=== PATIENT | female | born 1985 | race Caucasian/White ===

== ENCOUNTER 2023-11-20 19:02 | Emergency (ER) | payer BC, SELFPAY ==
[2023-11-20 19:12] VITALS: BP 119/70; PULSE 74; RESP 20; TEMP 37.3; O2SAT 100
--- NOTE | 2023-11-20 19:26 | ECG_ITS ---
Test Date: 2023-11-20 20:01:21 Measurements Intervals Rossiter Rate: 66 P: 47 PA: 132 QRS: 32 QRSD: 86 T: 43 QT: 379 QTc: 399 Interpretive Statements SINUS RHYTHM WITH SINUS ARRHYTHMIA BORDERLINE T WAVE ABNORMALITY- ANTERIOR LEADS BORDERLINE ECG No previous ECG available for comparison Electronically Signed On 11-21-2023 06:30:00 CDT by Charles Craig D.O.
--- NOTE | 2023-11-20 19:26 | ED.URI ---
HPI - URI/Sore Throat General Chief Complaint: Shortness of Breath/Dyspnea Stated Complaint: Sore Throat Time Seen by Provider: 11/20/23 19:20 Source: patient Mode of arrival: ambulatory Limitations: no limitations History of Present Illness HPI Narrative: Dominique is a 38-year-old female patient presenting to the clinic today with complaints of feeling as though she has swollen cervical lymph nodes, dizziness when bending over, and over the past couple weeks she has been having at times worse she feels as though she is having a chest pressure. She denies any chest pain or shortness of breath currently. Vital signs are stable. She reports that she has been under a lot of stress. Does report some nasal congestion as well. Related Data Home Medications Medication Instructions Recorded Confirmed No Home Medications 08/14/23 11/20/23 Allergies Allergy/AdvReac Type Severity Reaction Status Date / Time No Known Allergies Allergy Verified 11/20/23 19:40 [facility] Past Medical History Medical History Hx of migraines Kidney lesion RUQ pain Surgical History Surgical History History of laparoscopic cholecystectomy No history of previous surgery Social History Social History Smoking status: Never smoker Second hand tobacco smoke exposure: No Alcohol intake: current Drinks per week: 1 Substance use: never Do You Feel Safe in your Home?: Yes Lack of Transportation: No Lack of Food: Never True Current Housing: I Have Housing Concerned About Future Housing: No Difficulty Paying Gas/Electric Bills: No Difficulty Paying for Meds: No Currently Unemployed: No Education: Bachelor's Degree Difficulty w/ Childcare or Family Care: No Living arrangements: alone Occupation/Education: occupation Gender identity (if verbalized by the patient): Female Sexual Orientation (if Verbalized by the Patient): Straight or Heterosexual Spiritual care concerns: No Agree to blood products: Yes Comments At the time of my signature, I reviewed and agree with the nursing past medical, surgical, social, and family history. There is no relevant family history pertinent to the patient complaint. Exam Narrative: General: Well-developed, well nourished, in no apparent distress Head: Normocephalic, atraumatic Eyes: Pupils equally round and reactive to light bilaterally, EOM intact, sclera and conjunctive clear, no discharge, lids normal Ears: TMs intact and clear, ear canals clear, no drainage, grossly hearing normal. Nose: Nares patent, clear nasal discharge, no inflammation, no sinus tenderness. Mouth: Oropharynx without lesions or masses, good dentition, MMM. Neck: Supple, trachea midline, no enlargement of anterior or posterior cervical nodes, no thyroid masses or goiter palpable. Cardio: Regular rate and rhythm, s1 and s2 normal, no murmur appreciated. Resp: Clear to auscultation bilaterally anteriorly and posteriorly, no rhonchi, rales, wheezing or rubs Course Course Emergency Course: Portions of this record may have been created with voice recognition software. Level of Care: Express Care Visit Vital Signs Vital signs: Vital Signs Temperature 37.3 C 11/20/23 19:12 Pulse Rate 74 11/20/23 19:12 Respiratory Rate 20 11/20/23 19:12 Blood Pressure 119/70 11/20/23 19:12 Pulse Oximetry 100 11/20/23 19:12 Oxygen Delivery Room Air 11/20/23 19:12 Temperature 37.3 C 11/20/23 19:12 Pulse Rate 74 11/20/23 19:12 Respiratory Rate 20 11/20/23 19:12 Blood Pressure 119/70 11/20/23 19:12 Pulse Oximetry 100 11/20/23 19:12 Oxygen Delivery Room Air 11/20/23 19:12 Vital signs reviewed MDM - URI/Sore Throat MDM Narrative Medical decision making narrative: At the time of visit maxim
[2023-11-20 19:47] LABS: EDSTREPNEGPOS1 Presumptive Negative
== END 2023-11-20 20:27 | disposition home or self-care (01) ==
PROVIDERS: Emergency Provider Nurse Practitioner Family; PCP Emergency Medicine
DX: R42 Dizziness and giddiness (principal); R59.0 Localized enlarged lymph nodes; J06.9 Acute upper respiratory infection, unspecified; Z20.822 Contact with and (suspected) exposure to COVID-19
CPT/HCPCS: 87081; 87426; 87880; 93005; 99213; G0463

== ENCOUNTER 2025-01-28 09:57 | Outpatient (CLI) | payer BC, SELFPAY ==
--- OUTSIDE RECORDS SUMMARY | 2018-12-11 08:00 | XMS_ITS | Continuity of Care Document ---
Author Organization [facility] Address [address] [place] [address] Phone Care Team Providers Care Manager Architecture Name Role Phone Christofer Baez MD Unavailable Unavailab le Allergies, Adverse Reactions, Alerts Substance Reaction Status Criticality No Known Allergies Active No Inform ation Medications Medication Instructions Dosage Effective Dates (start - stop) Status Comments Maxalt 10 mg tablet take 1 tablet by ora l route once, may repeat at 2 hour intervals; do not exceed 30 mg in 24 hours 10 MG - Active sertraline 50 mg tablet TAKE 1 TABLET BY ORAL ROUTE EVERY DAY - Active Procedures Procedure Date Pt inelig neg scrn depres OFFICE [id number] BODY MASS INDEX DOCD SYST BP LT 130 MM HG DIAST BP < 80 MM HG Advance Directives Directive Yes / No Effective Date File Name Life Support Not Answered N/A N/A Intubation Not Answered N/A N/A Antibiotics Not Answered N/A N/A IV Fluid Support Not Answered N/A N/A Tube Feed Not Answered N/A N/A Other Directive N/A N/A WARNING:The information contained in this section is historical and is provided for information only and does not constitute a legal document or any assurance that the information is still accurate. Please verify the information with the decker of the legal document before using it for clinical purposes. Encounters Encounter Description Practice Location Reason(s) For Visit Diagnoses Date Provider Providers Copied on Encounter OFFICE [id number] PANDED [facility], [address], [place], [place], [address] , tel: [phone] [place] stomach issues (chief complaint) Body mass index (BMI) 31.0-31.9, adultDiarrhea, unspecified type Sasha Beaulieu. [address] [place] [address], [place] [address], [place], [place], [address], . tel:[phone] Referring Provider: Christofer heredia, [address] [place] [address], [place], [address] . tel:[phone] [facility], [address], [place], [place], [address] , tel: [phone] [place] No Information Chel Hodges. [address] [place] [address], [place] [address], [place], [place], [address], . tel:[phone] [facility], [address], [place], [place], [address] , tel: [phone] [place] No Information Milligan Tracie. [address] [place] [address], [place] [address], [place], [address], [place]. tel:[phone] [facility], [address], [place], [place], [address] , tel: [phone] [place] migraine and bruise under nail (chief complaint) Body mass index (BMI) 31.0-31.9, adultMigraine without status migrainosus, not intractable, unspecified migraine typeObesity (BMI 30-39.9)Encounte r for screening for diabetes mellitusEncounte r for immunizationEnco unter for general adult medical examination with abnormal findingsGenerali zed anxiety disorderNail dystrophy [facility] Beaulieu. [address] [place] [address], [place], [place], [address], [place]. tel:[phone] Referring Provider: Christofer heredia, [address] [place] [address], [place], [address] . tel:[phone] [facility], [address], [place], [place], [address] , tel: [phone] [place] Migraine without status migrainosus, not intractable, unspecified migraine typeGeneralized anxiety disorderSleep disturbanceBody mass index (BMI) 30.0-30.9, adultNon morbid obesity due to excess caloriesFamily planning counseling 8 Chel Hodges. [facility] [place], [facility] [address], [place], [place], [address], . tel:[phone] Referring Provider: Christofer heredia, [address] [place] [address] [address], [place], [address] . tel:[phone] [facility], [address], [place], [place], [address] , tel: [phone] [place] Generalized anxiety disorderSleep disturbanceFamil y planning counselingMigrai ne without status migrainosus, not intractable, unspecified migraine typeCoughBilater al low back pain, unspecified chronicity, with sciatica presence unspecified 8 Chel Hodges. [facility] [place], [address], [place], [place], [address], [place]. tel:[phone] Referring Provider: Christofer heredia, [address] [place] [address], [place], [address] . tel:[phone] [facility], [address], [place], [place], [address] , tel: [phone] [place] Other elevated white blood cell count 7 Sasha Beaulieu. [facility] [place], [facility] [address], [place], [place], [address], [place]. tel:[phone] Referring Provider: Christofer heredia, [address] [place] [address], [place], [address] . tel:[phone] [facility], [address], [place], [place], [address] , tel: [phone] [place] HematocheziaEnco unter for general adult medical examination with abnormal findingsOverweig ht (BMI 25.0-29.9)Epista xisScreening for diabetes mellitus (DM) 1-201 7 [facility] Christofer. [address] [place] [address], [place] [address], [place], [place], [address], . tel:[phone] Referring Provider: Christofer heredia, [address] [place] [address], [place], [address] . tel:[phone] [facility], [address], [place], [place], [address] , tel: [phone] [place] Right knee pain Aug- 5-201 4 [place] Christofer. [address] [place] [address], [place] [address], [place], [place], [address], [place]. tel:[phone] Referring Provider: Christofer heredia, [address] [place] [address], [place], [address] . tel:[phone] [facility], [address], [place], [place], [address] , tel: [phone] [place] Viral URI 4-201 3 Fo[place] Christofer. [address] [place] [address], [place] [address], [place], [place], [address], [place]. tel:[phone] Referring Provider: Christofer heredia, [address] [place] [address], [place], [address] . tel:[phone] [facility], [address], [place], [place], [address] , tel: [phone] [place] Streptococcal sore throat Sep-0 3-201 3 [facility] Christofer. [address] [place] [address], [place] [address], [place], [place], [address], [place]. tel:[phone] Referring Provider: Christofer heredia, [address] [place] [address], [place], [address] . tel:[phone] [facility], [address], [place], [place], [address] , tel: [phone] [place] Generalized anxiety disorder Aug- 5-201 3 Foersterling Christofer. [address] [place] [address], [address], [place], [place], [address], . tel:[phone] Referring Provider: Christofer heredia, [address] [place] [address], [place], [address] . tel:[phone] [facility], [address], [place], [place], [address] , tel: [phone] [place] SPECIAL SCREENING FOR MALIGNANT NEOPLASMS, OTHER SITES 3 Dung Miguel. [address] [facility] [address], [place], [place], [address], . tel:[phone] [facility], [address], [place], [place], [address] , tel: [phone] [place] Routine general medical examinationGener alized anxiety disorderRoutine general medical examination at a health care facilityPersonal history of other genital system and obstetric disorders 2 Sasha Beaulieu. [address] [place] [address], [facility] [address], [place], [place], [address], . tel:[phone] Referring Provider: Christofer heredia, [address] [place] [address], [place], [address] . tel:[phone] [facility], [address], [place], [place], [address] , tel:[phone] [place] ROUTINE MEDICAL EXAM 1 Sasha Beaulieu. [address] [place] [address], [place], [place], [address], . tel:[phone] Family History Family Member Type Diagnosis Age At Onset Problem (finding) No family hist ory of Coronary artery disease Mother Problem (finding) Diverticulitis Uncles Problem (finding) stroke Father Problem (finding) raised blood lipids Problem (finding) No family hist ory of Cancer, colon Problem (finding) No family hist ory of Cancer, breast Paternal grandmother Problem (finding) Diabetes mellit us Paternal grandfather Problem (finding) malignant neopl asm of lung Immunizations Vaccine Date Status Comments Tdap administered Source: [facility] unization Record Payers Payer name Insurance type Covered green party ID Cheryl casillas(s) [facility] [id number] [facility] [id number] Social History Type Description Quantity Date Captured Comments Alcohol Use Details Caffeine Use Details energy drinks Tobacco Use Status No Information Smoking Status Never smoker Sex Female Sexual Orientation Choose not to disclose Gender Identity Female Vital Signs Date / Time: Height Weight BMI Pulse Rate Blood Pressure Temperature Respiratory Rate Body Surface Area Head Circumference Head Circ. Percentile Wt./Dhruv. Percentile BMI percentile Pulse Ox Inhaled Ox 1:11 PM 63.50 in 80.739 kg (178.00 lbs) 31.0 4 kg/m eter (2) 68 /min 118/76 mm[Hg] 98.80 F 12 /min Chief Complaint And Reason For Visit From encounter dated '12/11/2018 13:00'. stomach issues (chief complaint). Description: Patient reports intermittent loose stools and some diarrhea over the last month. No blood in stool. No fever/chills. No nausea or vomiting. Appetite is good. Minimal abdominal discomfort, just some crampiness prior to bowel movement. No recent antibiotics use. No urinary symptoms. She wonders if she is allergic to gluten however she denies any history of problems with wheat products in the past. No constipation. She has not tried any specific treatments such as Immodium or probiotics. She has not identified anything that makes symptoms better or worse. Reason For Referral Reason For Referral No Information Plan Of Treatment Date Type Action Status Goal Dietary management education , guidance, and counseling completed Goal Dietary management education , guidance, and counseling completed History Of Present Illness Encounter Date Complaint History Of Prese nt Illness stomach issues Patient reports intermittent loose stools and some diarrhea over the last month. No blood in stool. No fever/chills. No nausea or vomiting. Appetite is good. Minimal abdominal discomfort, just some crampiness prior to bowel movement. No recent antibiotics use. No urinary symptoms. She wonders if she is allergic to gluten however she denies any history of problems with wheat products in the past. No constipation. She has not tried any specific treatments such as Immodium or probiotics. She has not identified anything that makes symptoms better or worse. migraine and bruise under nail P ceferino is a 33 y/o female that presents for fasting lab work and general physical.Migraines: Pt reports that she has been taking rizatriptan for treatment of her headaches when needed. She states that this is effective and well tolerated when needed. She never followed up with neurology yet. She reports that Topamax did not help control headaches and she felt it made things worse, so she stopped taking it.Reports that her L thumb fingernail has become distorted over the last year. No injury or trauma. No other skin or nail changes. KULDEEP: Pt reports that her anxiety is well controlled with current sertraline dosing. No SI/HI Obesity: Weight is up 8lbs since last OV. No changes to diet/exercise reported. Functional Status Date Functional Assessmen t No Information Instructions Date Instruction Additional Infor mation mild. No blood in st ool. No fever/chills. No recent antibiotic use. Normal abdominal exam. She can use Immodium if neeeded. Discussed dietary recommendations and bland diet for now. Probiotics may be helpful. If not improving over the coming week, she will follow up with GI. Follow up in one week if not resolved. Related to Diarrhea, unspecified type Dietary management e ducation, guidance, and counseling Related to Body mass index (BMI) 31.0-31.9, adult Safety precautions she reports that tri al of Topomax from [facility] was not effective for her or well tolerated. She states that headache frequency is stable at this time and that she currently takes Maxalt when needed for acute migraines which is effective for her. She is planning on getting in the near future so she will be consulting with neurologist now to discuss treatment strategies before and while she is . Related to Migraine without status migrainosus, not intractable, unspecified migraine type Linear distortion of left thumbnail. Etiology is not clear. Refer to [facility] for further evaluation and treatment. 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 Notify for worsening or persisting symptoms. Will monitor. No SI/HI. Related to Generalized anxiety disorder 33 y/o female. Tdap administered today. Complete WWE with MECHANICAL ASSEMBLER tomorrow as scheduled. Reviewed age appropriate safety, nutrition, and health maintenance. Will check CBC, CMP, FLP, A1c, and TSH today. Related to Encounter for general adult medical examination with abnormal findings Tdap administered to day.Follow up in 3-6 months.Charting performed by Scott Coelho, acting as scribe for Janette Baez. Janette Baez MD: I reviewed the chart and agree with and approve of the documentation. Related to Encounter for immunization Will check A1c today. Related to Encounter for screening for diabetes mellitus BMI of 31.73 today. Continue working on diet, exercise, and weight loss. Check TSH, CMP, A1c and FLP. Related to Obesity (BMI 30-39.9) Medication management Dietary management e ducation, guidance, and counseling Related to Body mass index (BMI) 31.0-31.9, adult Assessments Type Assessment Date assessment Body mass index (BMI) 31.0-31.9, adult assessment Diarrhea, unspecified type Mental Status Date Cognitive Assessment Orientation - [place] ed to time, place, person, situation.Normal Orientation Patient Care Teams Name Effective Dates (start - stop) Status Members No Information
--- NOTE | ~2025-01-28 | MM_ITS ---
EXAMINATION: MM screening julian BI w suzette HISTORY: Screening TECHNIQUE: Craniocaudal and mediolateral oblique 3-D tomosynthesis images were obtained and synthetic 2-D images were generated. CAD analysis was submitted and interpreted. COMPARISON: No prior mammogram is available for comparison at this institution. BREAST PARENCHYMAL COMPOSITION: The breasts are heterogeneously dense, which may obscure small masses. FINDINGS: There is no evidence of suspicious mass, calcification, or architectural distortion to suggest malignancy. Focal asymmetry in the upper-outer quadrant of the right breast. Focal asymmetry in the upper-outer quadrant of the left breast. Focal asymmetry in the right retroareolar region is questionable potential distortion. Focal asymmetry in the left retroareolar region. IMPRESSION: 1. Focal asymmetry in the upper-outer quadrant of the right breast. In addition, there is a focal asymmetry in the right retroareolar region with questionable associated architectural distortion. The study is incomplete. A diagnostic mammogram and a diagnostic ultrasound are recommended. 2. Focal asymmetry in the upper-outer quadrant of the left breast. In addition, there is a focal asymmetry in the left retroareolar region. The study is incomplete. A diagnostic mammogram and a diagnostic ultrasound are recommended. BI-RADS 0: Incomplete-Need additional imaging evaluation. Reviewed, dictated and finalized at location Q. IMPRESSION: 1. Focal asymmetry in the upper-outer quadrant of the right breast. In addition , there is a focal asymmetry in the right retroareolar region with questionable associated architectural distortion. The study is incomplete. A diagnostic julian mogram and a diagnostic ultrasound are recommended. 2. Focal asymmetry in the upper-outer quadrant of the left breast. In addition, there is a focal asymmetry in the left retroareolar region. The study is incom plete. A diagnostic mammogram and a diagnostic ultrasound are recommended. BI-RADS 0: Incomplete-Need additional imaging evaluation.
--- OUTSIDE RECORDS SUMMARY | 2025-01-28 10:52 | XMS_ITS | Patient Health Record ---
Author Organization [facility] Address [address] [place], [place] [address] Care Team Providers Care Wheel Truing Machine Tender Name Role Phone ISH NUNEZ Unavailable [phone] Christofer Baez Unavailable Unavailable Reason For Referral No Information Medications Medication SIG (Take, Route, Frequency, Duration) Notes Start Date End Date Status Medrol Dosepak ORAL Medrol DosepakOr iginal MedicationMedrol Dosepak *Reorder from [employer] for eRx and Interaction Alerts* 07/03/2017 Active Nabumetone 500 MG Oral Tablet nabumetone 500 MG Oral TabletOriginal Medicationnabumetone 500 MG Oral Tablet *Reorder from [employer] for eRx and Interaction Alerts* 08/07/2017 Active Plan Of Treatment No Information Insurance Providers Payer Name Payer Address Payer Phone Subscriber Number Group Number Insured Name Patient Relationship to Insured Coverage Start Date Coverage End Date CIGNA [address] [place] [address] [id number] YUSEF RED Self - patient is the insured
--- OUTSIDE RECORDS SUMMARY | 2025-01-28 10:52 | XMS_ITS | Clinical Summary ---
Author Organization [facility] Address [address] [place] [address] Care Team Providers Care Client Integration Manager Name Role Phone Unavailable Primary Care Provider Unavailabl e Source Comments [facility],non-owned Affiliates and Associated Physician Practices is amultiple site organization consisting of ambulatory clinics and hospital sitesin [place], [place], [place] and [place]. This disclosure is being madepursuant to the Care Everywhere program and may not contain all information available regarding this patient. Last updated 18.[employer] [facility] Allergies No known active allergies Medications * Be aware that medications may not be up to date on this document. Alwaysverify current medications with the patient. rizatriptan (MAXALT) 10 MG tablet Take 10 mg by mouth once as needed 07/18/2018 Active sertraline (Zoloft) 50 MG tablet Take 50 mg by mouth once daily Active vitamin D, ergocalciferol, (Drisdol) 1.25 MG (70973 UT) capsule Take 50,000 Units by mouth every 7 days 03/24/2021 Active escitalopram (Lexapro) 10 MG tablet Take 10 mg by mouth once daily 03/26/2021 Active valACYclovir (Valtrex) 1 GM tablet Take 1,000 mg by mouth as directed 05/31/2021 Active meloxicam (Mobic) 7.5 MG tabletIndicatio ns:Pain in left lower leg,Acute pain of right knee,Gastrocnem ius muscle tear, left, subsequent encounter Take 1 (one) tablet by mouth once daily 30 tablet 2 03/14/2022 Active Active Problems Problem Noted Date Diagnosed Date Renal mass 07/10/2019 Overview (02/23/2022): Added automatically from request for surgery [id number] Added automatically from request for surgery [id number] Migraine without aura and wi thout status migrainosus, not intractable 10/17/2018 Overview (02/23/2022): Last Assessment & Plan: The patient is a 33-year-old right-handed female with migraine headaches without aura. The patient is experiencing about weekly headaches at this point. We discussed today that if she and her her starting family planning, we ought to try to treat this in a way that is safe during . Thus, I recommended she start taking magnesium and riboflavin S supplements. We also discussed using low-dose propranolol to reduce her headache frequency. She is currently using Maxalt for abortive purposes. I explained that that is contraindicated in as it can compromise the vascular supply to the fetus. Until she becomes , she can continue to use that, but after she will need to use a Tylenol combination tablet such as Tylenol 3 or [place]. I will have her start the propranolol, magnesium, MRI above leaving at this point. Assuming this works well for her, I will see her back as needed. 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 Gender Identity Not on file Sexual Orientation Not on file Last Filed Vital Signs Vital Sign Reading Time Taken Comments Blood Pressure 120/82 09/28/2018 3:24 PM CDT Pulse 80 09/01/2018 2:36 PM CDT Temperature 36.9 C (98.4 F) 09/01/2018 2:36 PM CDT Respiratory Rate 16 09/01/2018 2:36 PM CDT Oxygen Saturation 98% 09/01/2018 2:36 PM CDT Inhaled Oxygen Concentration - - Weight 83.5 kg (184 lb) 03/14/2022 9:36 AM FIRE PROTECTION FABRICATOR Height 162.6 cm (5' 4) 09/28/2018 3:24 PM CDT Body Mass Index 31.58 09/28/2018 3:24 PM CDT Plan of Treatment Health Maintenance Due Date Last Done Comments MAMMOGRAM 1983 HIV SCREENING 08/03/1998 HEPATITIS C SCREENING 07/30/2001 DTAP/TDAP/TD VACCINES (1 - Tdap) 08/03/2002 HEPATITIS B VACCINE (1 of 3 - 19+ 3-dose series) 08/03/2002 HPV VACCINE (1 - 3-dose SCDM series) 08/03/2010 LIPID TESTING 09/15/2021 09/15/2016, 08/20/2012 PAP with HPV 09/29/2023 09/28/2018, 04/28/2017, 04/19/2016 DEPRESSION SCREENING 05/08/2024 COVID-19 VACCINE (1 - 2023-2 5 season) 2025 INFLUENZA VACCINE (#1) 2025 ZOSTER VACCINE (1 of 2) 08/03/2033 HIB VACCINE Aged Out No longer eligi ble based on patient's age to complete this topic MENINGOCOCCAL (Group B) VACCINE SHARED DECISION-MAKING Aged Out No longer eligible based on patient's age to complete this topic MENINGOCOCCAL GROUPS A/C/Y/W VACCINE Aged Out No longer eligible b ased on patient's age to complete this topic PNEUMOCOCCAL VACCINE Aged Out No long er eligible based on patient's age to complete this topic Procedures Procedure Name Priority Date/Time Associated Diagnosis Comments HPV DNA PROBE HIGH RISK Routine 09/28/2018 3:29 PM CDT Pap smear, as part of routine gynecological examination from Last 3 Months or Most Recently Relevant to Health Maintenance Results * HPV DNA PROBE HIGH RISK (09/28/2018 3:29 PM CDT) Human papillomavirus High Risk Negative Negative [facility] INSURANCE BILL Comment: This high-risk HPV test detects thirteen high-risk types (16/18/31/33/35/39/45/51/52/56/58/59/68) without differentiation. . 09/28/2018 3:29 PM CDT 09/28/2018 Narrative [facility] INSURANCE BILL - 10/04/2018 5:07 PM CDT No. of containers..01 ThinPrep Vial Resulting Agency Comment Lab Testing performed at: [address] [id number] [place] Ferny Leal MD LAB - MICROBIOLOGY ORDERABLE S Final Result [facility] [address] [place] [address] from Last 3 Months or Most Recently Relevant to Health Maintenance Insurance ANTHEM ANTHEM AETNA AETNA AETNA AETNA AETNA AETNA ANTHEM ANTHEM ANTHEM Advance Directives * Full Code (Latest Code Status on File) Date Activated Date Inactivated Comments 04/21/2010 11:07 AM 04/23/2010 12:13 AM
--- OUTSIDE RECORDS SUMMARY | 2025-01-28 10:52 | XMS_ITS | Clinical Summary ---
Author Organization [facility] Address [address] [facility] [place] [address] Care Team Providers Care Learning And Development Analyst Name Role Phone Christofer Baez MD Primary Care Provider [phone] Allergies No known active allergies Medications docusate sodium (COLACE) 100 mg capsuleIndicati ons:constipatio n Take 1 capsule (100 mg total) by mouth 2 (two) times a day 30 capsule 09/17/2019 Active oxyCODONE-aceta minophen (PERCOCET) 5-325 mg per tabletIndicatio ns:Pain Take 1 tablet by mouth every 6 (six) hours as needed for pain Do not exceed 8 tablets per day. 10 tablet 09/18/2019 Active rizatriptan (MAXALT) 10 mg tablet TAKE ONE TABLET BY MOUTH ONCE NEEDED FOR MIGRAINE. MAY REPEAT IN 2 HOURS IF UNRESOLVED. DO NOT EXCEED 2 TABLETS IN 24 HOURS. 9 tablet 04/29/2020 Active Active Problems Problem Noted Date Diagnosed Date Right renal mass 09/13/2019 Overview (09/13/2019): Added automatically from request for surgery [id number] Renal mass 07/10/2019 Overview (07/10/2019): Added automatically from request for surgery [id number] Migraine without aura and wi thout status migrainosus, not intractable 10/17/2018 Assessment & Plan (10/17/2018 2:16 PM CDT): The patient is a 33-year-old right-handed female [...] combination tablet such as Tylenol 3 or [place]. I will have her start the propranolol, magnesium, MRI above leaving at this point. Assuming this works well for her, I will see her back as needed. Surgical History Surgery Date Site/Laterality Comments CERVICAL BIOPSY W/ LOOP ELEC TRODE EXCISION 05/08/2009 - 05/07/2010 CHOLECYSTECTOMY 04/07/2019 - 05/07/2019 Medical History Medical History Date Comments Migraines Renal mass Family History Medical History Relation Name Comments Anesthesia problems Neg Hx Stroke Neg Hx Relation Name Status Comments Father Alive Mother Alive Social History Tobacco Use Types Packs/Day Years Used Date Smoking Tobacco: Never Smokeless Tobacco: Never Alcohol Use Standard Drinks/Week Comments Yes 3 (1 standard drink = 0.6 oz pur e alcohol) Comments No Sex and Gender Information Value Date Recorded Sex Assigned at Not on file Legal Sex Female 10:59 AM CDT Gender Identity Not on file Sexual Orientation Not on file Obstetrics History Last Filed Vital Signs Vital Sign Reading Time Taken Comments Blood Pressure 127/73 09/18/2019 8:45 AM CDT Pulse 93 09/18/2019 8:45 AM CDT Temperature 36.5 C (97.7 F) 09/18/2019 8:45 AM CDT Respiratory Rate 16 09/18/2019 8:45 AM CDT Oxygen Saturation 99% 09/18/2019 8:45 AM CDT Inhaled Oxygen Concentration - - Weight 79.4 kg (175 lb) 09/17/2019 9:27 AM CDT Height 162.6 cm (5' 4) 09/17/2019 9:27 AM CDT Body Mass Index 30.04 09/17/2019 9:27 AM CDT Plan of Treatment Not on file Insurance [facility] Advance Directives For more information, please contact: [phone] * Full Code (Latest Code Status on File) Date Activated Date Inactivated Comments 09/17/2019 6:57 PM 09/18/2019 4:34 PM Care Teams Learning And Development Analyst Relationship Specialty Start Date End Date Christofer Baez MD [address] [address] PCP - General Family Medicine 09/26/18
== END 2025-01-28 09:58 | disposition home or self-care (01) ==
LOC: ANHFOHIMG 09:58
PROVIDERS: PCP Internal Medicine; Visit Provider Student in an Organized Health Care Education/Training Program
DX: Z12.31 Encounter for screening mammogram for malignant neoplasm of breast (principal); N64.89 Other specified disorders of breast
CPT/HCPCS: 77063; 77067

== ENCOUNTER 2025-02-10 13:13 | Outpatient (CLI) | payer BC, SELFPAY ==
--- OUTSIDE RECORDS SUMMARY | 2018-12-11 08:00 | XMS_ITS | Continuity of Care Document ---
Author Organization [facility] Address [address] [place] [address] Phone Care Team Providers Care Seamless Tube Roller Name Role Phone Christofer Baez MD Unavailable [...] Date Pt inelig neg scrn depres OFFICE [id number] BODY MASS INDEX DOCD SYST BP LT [...] Date Provider Providers Copied on Encounter OFFICE [id number] PANDED [facility], [address], [place], [place], [address] , tel: [phone] [place] stomach issues (chief complaint) Body mass index (BMI) 31.0-31.9, adultDiarrhea, unspecified type Sasha Beaulieu. [address] [place] [address], [place] [address], [place], [place], [address], . tel:[phone] Referring Provider: Christofer heredia, [address] [place] [address], [place], [address] . tel:[phone] [facility], [address], [place], [place], [address] , tel: [phone] [place] No Information Chel Hodges. [address] [place] [address], [place] [address], [place], [place], [address], . tel:[phone] [facility], [address], [place], [place], [address] , tel: [phone] [place] No Information Milligan Tracie. [address] [place] [address], [place] [address], [place], [address], [place]. [phone] [facility], [address], [place], [place], [address] , tel: [phone] [place] migraine and bruise under nail (chief complaint) Body mass index (BMI) 31.0-31.9, adultMigraine without status migrainosus, not intractable, unspecified migraine typeObesity (BMI 30-39.9)Encounte r for screening for diabetes mellitusEncounte r for immunizationEnco unter for general adult medical examination with abnormal findingsGenerali zed anxiety disorderNail dystrophy [facility]al[facility] Beaulieu. [address] [place] [address], [place], [place], [address], [place]. tel:[phone] Referring Provider: Christofer heredia, [address] [place] [address], [place], [address] . tel:[phone] [facility], [address], [place], [place], [address] , tel: [phone] [place] Migraine without status migrainosus, not intractable, unspecified migraine typeGeneralized anxiety disorderSleep disturbanceBody mass index (BMI) 30.0-30.9, adultNon morbid obesity due to excess caloriesFamily planning counseling 8 Chel Hodges. [facility] [place], [facility] [address], [place], [place], [address], . tel:[phone] Referring Provider: Christofer heredia, [address] [place] [address] [address], [place], [address] . tel:[phone] [facility], [address], [place], [place], [address] , tel: [phone] [place] Generalized anxiety disorderSleep disturbanceFamil y planning counselingMigrai ne without status migrainosus, not intractable, unspecified migraine typeCoughBilater al low back pain, unspecified chronicity, with sciatica presence unspecified 8 Chel Hodges. [facility] [place], [address], [place], [place], [address], [place]. tel:[phone] Referring Provider: Christofer heredia, [address] [place] [address], [place], [address] . tel:[phone] [facility], [address], [place], [place], [address] , tel: [phone] [place] Other elevated white blood cell count 7 Sasha Beaulieu. [facility] [place], [facility] [address], [place], [place], [address], [place]. tel:[phone] Referring Provider: Christofer heredia, [address] [place] [address], [place], [address] . tel:[phone] [facility], [address], [place], [place], [address] , tel: [phone] [place] HematocheziaEnco unter for general adult medical examination with abnormal findingsOverweig ht (BMI 25.0-29.9)Epista xisScreening for diabetes mellitus (DM) 1-201 7 Fo[place]ster[place] Christofer. [address] [place] [address], [place] [address], [place], [place], [address], . tel:[phone] Referring Provider: Christofer heredia, [address] [place] [address], [place], [address] . tel:[phone] [facility], [address], [place], [place], [address] , tel: [phone] [place] Right knee pain Aug- 5-201 4 Foerster[place] Christofer. [address] [place] [address], [place] [address], [place], [place], [address], [place]. tel:[phone] Referring Provider: Christofer heredia, [address] [place] [address], [place], [address] . tel:[phone] [facility], [address], [place], [place], [address] , tel: [phone] [place] Viral URI 4-201 3 [facility] Chrsitofer. [address] [place] [address], [place] [address], [place], [address], [place]. tel:[phone] Referring Provider: Christofer heredia, [address] [place] [address], [place], [address] . tel:[phone] [facility], [address], [place], [place], [address] , tel: [phone] [place] Streptococcal sore throat Sep-0 3-201 3 Foersterling Christofer. [address] [place] [address], [place] [address], [place], [place], [address], [place]. tel:[phone] Referring Provider: Christofer heredia, [address] [place] [address], [place], [address] . tel:[phone] [facility], [address], [place], [place], [address] , tel: [phone] [place] Generalized anxiety disorder Aug- 5-201 3 Foersterling Christofer. [address] [place] [address], [address], [place], [place], [address], . tel:[phone] Referring Provider: Christofer heredia, [address] [place] [address], [place], [address] . tel:[phone] [facility], [address], [place], [place], [address] , tel: [phone] [place] SPECIAL SCREENING FOR MALIGNANT NEOPLASMS, OTHER SITES 3 Dung Miguel. [address], [facility] [address], [place], [place], [address], . tel:[phone] [facility], [address], [place], [place], [address] , tel: [phone] [place] Routine general medical examinationGener alized anxiety disorderRoutine general medical examination at a health care facilityPersonal history of other genital system and obstetric disorders 2 Sasha Bealuieu. [address] [place] [address], [facility] [address], [place], [place], [address], . tel:[phone] Referring Provider: Christofer heredia, [address] [place] [address], [place], [address] . tel:[phone] [facility], [address], [place], [place], [address] , tel:[phone] [place] ROUTINE MEDICAL EXAM 1 Sasha Beaulieu. [address] [place] [address], [place], [place], [address], . tel:[phone] Family History Family Member Type Diagnosis Age [...] Date Status Comments Tdap administered Source: [facility] unization Record Payers Payer name Insurance type Covered libertarian ID Cheryl casillas(s) [facility] [id number] [facility] [id number] Social History Type Description Quantity Date Captured [...] female. Tdap administered today. Complete WWE with CUSTOMER PROGRAM MANAGER tomorrow as scheduled. Reviewed age appropriate safety, [...] Mental Status Date Cognitive Assessment Orientation - [place] ed to time, place, person, situation.Normal Orientation Patient Care Teams Name Effective Dates (start - stop) Status Members No Information
--- NOTE | ~2025-02-10 | MMUS_ITS ---
EXAMINATION: MM diagnostic julian BI w suzette, US breast LT limited INDICATION: 39-year old female; BI-RADS 0, bilateral breast findings. COMPARISON: 01/28/2025 TECHNIQUE: Digital breast tomosynthesis True lateral and spot compression CC and MLO views of BILATERAL breasts were obtained with computer-aided detection to assist in interpretation of the study. MAMMOGRAM FINDINGS: The breasts are heterogeneously dense, which may obscure small masses. The focal asymmetry of concern in the upper outer right breast effaces on spot compression views compatible with superimposition of fibroglandular tissue. The focal asymmetry of concern in the retroareolar right breast effaces on spot compression views compatible with superimposition of fibroglandular tissue. The focal asymmetry of concern in the retroareolar left breast effaces on spot compression views compatible with superimposition of fibroglandular tissue. The focal asymmetry of concern in the upper outer left breast effaces on spot compression views compatible with superimposition of fibroglandular tissue. A circumscribed mass persists in the superior lateral left breast at middle third. Ultrasound was performed for further evaluation. LEFT BREAST ULTRASOUND FINDINGS: Targeted evaluation of the area of concern was completed. There is a 0.5 x 0.7 x 0.4 cm anechoic mass at 2:00 location 6 cm from the nipple in the LEFT breast that correlates to the area of Mammographic finding. At 12:00, 3 cm from the nipple there is a circumscribed hypoechoic mass that measure 0.2 x 0.3 x 0.2 cm. This is a benign oil cyst. Additional 0.3 x 0.4 x 0.3 cm circumscribed complicated cyst is identified at 12:00, 8 cm from the nipple. IMPRESSION: Bilateral benign findings compatible with superimposition of fibroglandular tissue. Benign LEFT breast cyst at 2:00, 6 cm from the nipple correlates to mammographic finding. No further investigation necessary. Left breast complicated cyst and oil cyst needs no further evaluation. RECOMMENDATION: ANNUAL SCREENING BILATERAL MAMMOGRAPHY BI-RADS 2, BENIGN Reviewed, dictated and finalized at location B. IMPRESSION: Bilateral benign findings compatible with superimposition of fibroglandular tis chris. Benign LEFT breast cyst at 2:00, 6 cm from the nipple correlates to mammographi c finding. No further investigation necessary. Left breast complicated cyst and oil cyst needs no further evaluation. RECOMMENDATION: ANNUAL SCREENING BILATERAL MAMMOGRAPHY BI-RADS 2, BENIGN
--- OUTSIDE RECORDS SUMMARY | 2025-02-10 14:13 | XMS_ITS | Clinical Summary ---
Author Organization [facility] Address [address] [place] [address] Care Team Providers Care Tool Crib Supervisor Name Role Phone Christofer Baez MD Primary Care Provider [phone]- [phone] Allergies No known active allergies Medications docusate [...] (09/13/2019): Added automatically from request for surgery [id number] Renal mass 07/10/2019 Overview (07/10/2019): Added automatically from request for surgery [id number] Migraine without aura and wi thout status [...] combination tablet such as Tylenol 3 or [place]. I will have her start the propranolol, [...] Plan of Treatment Not on file Insurance [facility] Advance Directives For more information, please contact: [phone] * Full Code (Latest Code Status on File) Date Activated Date Inactivated Comments 09/17/2019 6:57 PM 09/18/2019 4:34 PM Care Teams Tool Crib Supervisor Relationship Specialty Start Date End Date Christofer Baez MD [address] [address] PCP - General Family Medicine 09/26/18
--- OUTSIDE RECORDS SUMMARY | 2025-02-10 14:13 | XMS_ITS | Clinical Summary ---
Author Organization [facility] [employer] Address [address] [place] [address] Care Team Providers Care Oyster Tonger Name Role Phone Unavailable Primary Care Provider Unavailabl e Source Comments [facility] [employer],non-owned Affiliates and Associated Physician Practices is amultiple site organization consisting of ambulatory clinics and hospital sitesin [place], [place], [place] and [place]. This disclosure is being madepursuant to the Care Everywhere program and may not contain all information available regarding this patient. Last updated 18.[employer] [facility] [employer] Allergies No known active allergies Medications * Be aware that medications may not be up to date on this document. Alwaysverify current medications with the patient. rizatriptan (MAXALT) 10 MG tablet Take 10 mg by mouth once as needed 07/18/2018 Active sertraline (Zoloft) 50 MG tablet Take 50 mg by mouth once daily Active vitamin D, ergocalciferol, (Drisdol) 1.25 MG (15890 UT) capsule Take 50,000 Units by mouth [...] (02/23/2022): Added automatically from request for surgery [id number] Added automatically from request for surgery [id number] Migraine without aura and wi thout status [...] combination tablet such as Tylenol 3 or [place]. 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 Gender Identity Not on file Sexual Orientation [...] 83.5 kg (184 lb) 03/14/2022 9:36 AM ROLLER MILL OPERATOR Height 162.6 cm (5' 4) 09/28/2018 3:24 [...] Resulting Agency Comment Lab Testing performed at: [address] [id number] [place] Ferny Leal MD LAB - MICROBIOLOGY ORDERABLE S Final Result [facility] [address] [place] [address] from Last 3 Months or Most Recently Relevant to Health Maintenance Insurance ANTHEM ANTHEM AETNA [facility] Care Address: [facility] [id number] [place] [phone] AETNA AETNA AETNA AETNA AETNA ANTHEM ANTHEM ANTHEM Advance Directives * Full Code (Latest Code Status on File) Date Activated Date Inactivated Comments 04/21/2010 11:07 AM 04/23/2010 12:13 AM
--- OUTSIDE RECORDS SUMMARY | 2025-02-10 14:13 | XMS_ITS | Patient Health Record ---
Author Organization [facility] Address [address] [place], [place] [address] Care Team Providers Care Rack Worker Name Role Phone ISH NUNEZ Unavailable [phone] Christofer Baez Unavailable Unavailable Reason For Referral No Information Medications Medication SIG (Take, Route, Frequency, Duration) Notes Start Date End Date Status Medrol Dosepak ORAL Medrol DosepakOr iginal MedicationMedrol Dosepak *Reorder from [employer] for eRx and Interaction Alerts* 07/03/2017 Active Nabumetone 500 MG Oral Tablet nabumetone 500 MG Oral TabletOriginal Medicationnabumetone 500 MG Oral Tablet *Reorder from [employer] for eRx and Interaction Alerts* 08/07/2017 Active Plan Of Treatment No Information Insurance Providers Payer Name Payer Address Payer Phone Subscriber Number Group Number Insured Name Patient Relationship to Insured Coverage Start Date Coverage End Date CIGNA [address] [place] [address] [phone] [id number] YUSEF RED Self - patient is the insured
== END 2025-02-10 13:14 | disposition home or self-care (01) ==
PROVIDERS: PCP Internal Medicine; Visit Provider Student in an Organized Health Care Education/Training Program
DX: N64.89 Other specified disorders of breast (principal)
CPT/HCPCS: 76642; 77062; 77066; G0279